=== PATIENT | female | born 1935 | race Caucasian/White ===

== ENCOUNTER 2016-12-02 14:39 | Observation (INO) | payer MEDICARE, OTHER ==
[~2016-12-02] VITALS: Ht 149.9 cm; Wt 55.3 kg
[~2016-12-02 14:39] MED LIST: PLAVIX 75 MG TA75 MG PO; SUCRALFATE1 GM PO
[2016-12-02 17:46] LABS: RED BLOOD COUNT 4.12 M/UL (4.00-5.10); WHITE BLOOD COUNT 9.9 K/UL (4.5-11.0)
[2016-12-03] MEDS ORDERED: HYDRALAZINE HCL25 MG PO (00:04)
[2016-12-03] MEDS ORDERED: LANTUS INS100 UTS/M1 SQ (00:04)
[2016-12-03] MEDS ORDERED: IMDUR ER TAB 3030 MG PO (00:05)
[2016-12-03] MEDS ORDERED: COZAAR50 MG PO (00:06)
[2016-12-03] MEDS ORDERED: PROTONIX40 MG PO (00:06)
[2016-12-03] MEDS ORDERED: GLUCOPHAGE 500500 MG PO (00:07)
[2016-12-03] MEDS ORDERED: DILTIAZEM 24HR240 M1 PO (00:08)
[2016-12-03] MEDS ORDERED: VOLTAREN100 GM TP (00:09)
[2016-12-03] MEDS ORDERED: ZANTAC 150 MG150 MG PO (00:10)
[2016-12-03] MEDS ORDERED: ZOFRAN 4 MG TAB4 MG PO (00:11)
[2016-12-03] MEDS ORDERED: LOPRESSOR 25 MG25 MG PO (00:12)
[2016-12-03] MEDS ORDERED: LIPITOR TAB 1010 MG PO (00:13)
[2016-12-03] MEDS ORDERED: FEOSOL325 MG PO (00:14)
[2016-12-03] MEDS ORDERED: FLOVENT DISKUS50 MCG INH (00:15)
[2016-12-03] MEDS ORDERED: ASPIRIN325 MG PO (00:15)
[2016-12-03] MEDS ORDERED: ALPHAGAN P5 ML OU (00:16)
[2016-12-03] MEDS ORDERED: LASIX20 MG PO (00:17)
[2016-12-03] MEDS ORDERED: RESTASIS 0.05%1 EACH OD (00:17)
[2016-12-03] MEDS ORDERED: XALATAN2.5 ML OU (00:18)
[2016-12-03] MEDS ORDERED: CALCIUM LACTAT650 MG PO (00:21)
[2016-12-03 06:40] LABS: HEMOGLOBIN 11.5 gm/dl (12.3-15.3); RED BLOOD COUNT 3.96 M/UL (4.00-5.10)
[2016-12-03 06:45] LABS: WHITE BLOOD COUNT 6.8 K/UL (4.5-11.0)
[2016-12-04 05:58] LABS: HEMOGLOBIN 10.9 gm/dl (12.3-15.3); RED BLOOD COUNT 3.78 M/UL (4.00-5.10); WHITE BLOOD COUNT 6.2 K/UL (4.5-11.0)
== END 2016-12-04 12:37 | disposition home or self-care (01) ==
LOC: ER1 14:39 → M/S 22:00 → ZEROF 22:00 → M/S 23:37
PROVIDERS: Emergency Medicine; Legal Medicine; ADMIT Internal Medicine
DX: R07.9 Chest pain, unspecified (principal); I48.2 Chronic atrial fibrillation; I27.2 Other secondary pulmonary hypertension; I10 Essential (primary) hypertension; E78.5 Hyperlipidemia, unspecified; E11.9 Type 2 diabetes mellitus without complications; I25.10 Atherosclerotic heart disease of native coronary artery without angina pectoris; R19.5 Other fecal abnormalities; Z86.73 Personal history of transient ischemic attack (TIA), and cerebral infarction without residual deficits; Z86.79 Personal history of other diseases of the circulatory system; Z79.82 Long term (current) use of aspirin; Z79.4 Long term (current) use of insulin; Z79.899 Other long term (current) drug therapy; Z87.19 Personal history of other diseases of the digestive system; Z90.49 Acquired absence of other specified parts of digestive tract; Z90.710 Acquired absence of both cervix and uterus; Z98.49 Cataract extraction status, unspecified eye; Z90.89 Acquired absence of other organs; Z88.6 Allergy status to analgesic agent; Z88.2 Allergy status to sulfonamides; R11.2 Nausea with vomiting, unspecified; R19.7 Diarrhea, unspecified
CPT/HCPCS: ECHO; 36415; 71010; 78452; 80048; 80053; 81001; 82550; 82553; 82962; 83605; 83690; 83874; 83880; 84484; 85025; 85027; 85610; 85730; 87040; 87086; 93005; 93017; 93306; 94640; 94664; 96361; 96372; 96374; 96375; 96376; 99285; A9502; G0378; J1650; J2270; J2405; J2785; J7030; J7050; Q9963

== ENCOUNTER → 2017-01-01 | Outpatient (CLI) | payer MEDICARE, OTHER ==
[~2017-01-01] MED LIST changes: +ALPHAGAN P5 ML OU; +ASPIRIN325 MG PO; +CALCIUM LACTAT650 MG PO; +COZAAR50 MG PO; +DILTIAZEM 24HR240 M1 PO; +FEOSOL325 MG PO; +FLOVENT DISKUS50 MCG INH; +GLUCOPHAGE 500500 MG PO; +HYDRALAZINE HCL25 MG PO; +IMDUR ER TAB 3030 MG PO; +LANTUS INS100 UTS/M1 SQ; +LASIX20 MG PO; +LIPITOR TAB 1010 MG PO; +LOPRESSOR 25 MG25 MG PO; +PROTONIX40 MG PO; +RESTASIS 0.05%1 EACH OD; +VOLTAREN100 GM TP; +XALATAN2.5 ML OU; +ZANTAC 150 MG150 MG PO; +ZOFRAN 4 MG TAB4 MG PO
== END ==
LOC: RAD 11:37
DX: M25.551 Pain in right hip (principal); M25.561 Pain in right knee; M54.5 Low back pain; M89.8X5 Other specified disorders of bone, thigh
CPT/HCPCS: 73502; 73564

== ENCOUNTER 2017-01-02 10:40 | Emergency (ER) | payer MEDICARE, OTHER ==
[2017-01-02 12:17] LABS: HEMOGLOBIN 13.5 gm/dl (12.3-15.3); RED BLOOD COUNT 4.61 M/UL (4.00-5.10); WHITE BLOOD COUNT 9.8 K/UL (4.5-11.0)
== END 2017-01-02 16:50 | disposition home or self-care (01) ==
LOC: ER1 10:40
PROVIDERS: Specialist/Technologist Athletic Trainer
DX: M51.36 Other intervertebral disc degeneration, lumbar region (principal); E11.65 Type 2 diabetes mellitus with hyperglycemia; R91.1 Solitary pulmonary nodule; I11.9 Hypertensive heart disease without heart failure; Z90.49 Acquired absence of other specified parts of digestive tract; Z90.710 Acquired absence of both cervix and uterus; Z79.82 Long term (current) use of aspirin; Z88.2 Allergy status to sulfonamides; Z88.5 Allergy status to narcotic agent; Z87.820 Personal history of traumatic brain injury
CPT/HCPCS: 36415; 71250; 72128; 72131; 80053; 82550; 82553; 83874; 84484; 85025; 93005; 99285

== ENCOUNTER → 2020-08-25 | Outpatient (CLI) | payer MEDICARE ==
[~2020-08-25] MED LIST changes: +ANTIVERT 12.512.5 MG PO; +CALCIUM600 MG PO; +COZAAR25 MG PO; +FLONASE 0.05% N16 GM; +FUROSEMIDE40 MG PO; +MYLANTA MAXIMU355 ML PO; +PREDNISONE 20 M20 MG PO; +TESSALON PERLE100 MG PO; +VISCOUS LIDOCAINE PO; +ZOFRAN ODT 4 MG4 MG SL
== END ==
LOC: EXRD 08-19 10:00
DX: K74.60 Unspecified cirrhosis of liver (principal); Z90.49 Acquired absence of other specified parts of digestive tract
CPT/HCPCS: 76700

== ENCOUNTER → 2021-10-05 | Outpatient (CLI) | payer MEDICARE | LOC: KOH-I 11:20 | DX: M25.561 Pain in right knee (principal); M25.562 Pain in left knee; M25.551 Pain in right hip; M25.552 Pain in left hip; M17.11 Unilateral primary osteoarthritis, right knee; M11.261 Other chondrocalcinosis, right knee; M89.9 Disorder of bone, unspecified; M16.0 Bilateral primary osteoarthritis of hip | CPT/HCPCS: 73522; 73562 ==

== ENCOUNTER → 2021-10-16 | Outpatient (CLI) | payer MEDICARE | LOC: KOH-I 08:38 | DX: K74.69 Other cirrhosis of liver (principal); Z90.49 Acquired absence of other specified parts of digestive tract | CPT/HCPCS: 76700 ==

== ENCOUNTER → 2021-11-01 | Outpatient (CLI) | payer MEDICARE | LOC: KOH-I 16:05 | DX: R06.02 Shortness of breath (principal); R05.9 Cough, unspecified; I51.7 Cardiomegaly | CPT/HCPCS: 71046 ==

== ENCOUNTER → 2021-11-09 | Outpatient (CLI) | payer MEDICARE | LOC: ECHO 10:00 | PROVIDERS: Nurse Practitioner | DX: I50.31 Acute diastolic (congestive) heart failure (principal); R91.8 Other nonspecific abnormal finding of lung field | CPT/HCPCS: ECHO; 36415; 71046; 80053; 83880; 93306 ==